=== PATIENT | male | born 1950 | race Caucasian/White ===

== ENCOUNTER → 2017-05-21 | Outpatient (CLI) | payer MEDICARE, OTHER | LOC: US 11:16 | DX: N17.9 Acute kidney failure, unspecified (principal); N28.89 Other specified disorders of kidney and ureter; N26.1 Atrophy of kidney (terminal) ==

== ENCOUNTER 2022-01-30 17:35 | Inpatient (IN) | payer MEDICARE, OTHER ==
[~2022-01-30] VITALS: Ht 190.5 cm; Wt 83.5 kg
[2022-01-30 18:55] LABS: HEMOGLOBIN 14.3 gm/dl (14.0-17.5); RED BLOOD COUNT 4.48 M/UL (4.20-5.50); WHITE BLOOD COUNT 5.9 K/UL (4.5-11.0)
[2022-01-30 19:18] LABS: BUN/CREATININE RATIO 17 (0-10)
[2022-01-30] MEDS ORDERED: AMLODIPINE BESYL5 MG PO (23:27)
[2022-01-30] MEDS ORDERED: CLOPIDOGREL75 MG PO (23:27)
[2022-01-30] MEDS ORDERED: PROTONIX 40 MG40 M1 PO (23:28)
[2022-01-30] MEDS ORDERED: PRAVASTATIN SOD20 MG PO (23:28)
[2022-01-30] MEDS ORDERED: STIOLTO RESPIMAT4 GM INH (23:29)
[2022-01-31 07:02] LABS: HEMOGLOBIN 14.4 gm/dl (14.0-17.5); RED BLOOD COUNT 4.52 M/UL (4.20-5.50); WHITE BLOOD COUNT 5.7 K/UL (4.5-11.0)
[2022-02-01 06:31] LABS: HEMOGLOBIN 13.4 gm/dl (14.0-17.5); RED BLOOD COUNT 4.19 M/UL (4.20-5.50)
[2022-02-01 06:53] LABS: WHITE BLOOD COUNT 11.4 K/UL (4.5-11.0)
[2022-02-02 06:07] LABS: HEMOGLOBIN 13.1 gm/dl (14.0-17.5); RED BLOOD COUNT 4.16 M/UL (4.20-5.50); WHITE BLOOD COUNT 9.4 K/UL (4.5-11.0)
[2022-02-03 05:55] LABS: HEMOGLOBIN 12.6 gm/dl (14.0-17.5); RED BLOOD COUNT 3.94 M/UL (4.20-5.50); WHITE BLOOD COUNT 8.3 K/UL (4.5-11.0)
[2022-02-03 06:20] LABS: BUN/CREATININE RATIO 29 (0-10)
[2022-02-03] MEDS ORDERED: VITAMIN D325 MCG PO (13:56)
[2022-02-03] MEDS ORDERED: ZINC SULFATE50 MG PO (13:56)
[2022-02-03] MEDS ORDERED: PROAIR HFA8.5 GM INH (13:56)
[2022-02-03] MEDS ORDERED: OMNICEF 300 MG300 MG PO (13:56)
[2022-02-03] MEDS ORDERED: ROBITUSSIN DM UD5 ML PO (13:56)
[2022-02-03] MEDS ORDERED: MEDROL TAB 4 MG4 MG PO (13:56)
[2022-02-03] MEDS ORDERED: VITAMIN C 500500 MG PO (13:56)
--- NOTE | 2022-02-03 14:56 | NUR ---
contacted patient family member listed on his contact information and family member stated that he does not know the patient family physician name, he stated he takes the patient to [place] and he does not remember the name. instructed family to make an appt for patient in one week for follow up visit and he verb understanding.
== END 2022-02-03 15:35 | disposition home or self-care (01) | DRG 177 ==
LOC: ER1 17:35 → CDU 20:27 → M/S 20:27
PROVIDERS: Emergency Medicine; Internal Medicine; ADMIT Internal Medicine
PROC: 8E0ZXY6 Isolation (ICD-10-PCS; principal; 2022-01-30)
PROC: 3E03329 Introduction of Other Anti-infective into Peripheral Vein, Percutaneous Approach (ICD-10-PCS; 2022-01-30)
PROC: 3E0333Z Introduction of Anti-inflammatory into Peripheral Vein, Percutaneous Approach (ICD-10-PCS; 2022-01-31)
PROC: XW033E5 Introduction of Remdesivir Anti-infective into Peripheral Vein, Percutaneous Approach, New Technology Group 5 (ICD-10-PCS; 2022-01-31)
DX: U07.1 COVID-19 (principal); J12.82 Pneumonia due to coronavirus disease 2019; J96.01 Acute respiratory failure with hypoxia; J15.9 Unspecified bacterial pneumonia; J44.0 Chronic obstructive pulmonary disease with (acute) lower respiratory infection; N17.9 Acute kidney failure, unspecified; E87.2 Acidosis; E78.5 Hyperlipidemia, unspecified; I12.9 Hypertensive chronic kidney disease with stage 1 through stage 4 chronic kidney disease, or unspecified chronic kidney disease; K21.9 Gastro-esophageal reflux disease without esophagitis; E86.0 Dehydration; I25.10 Atherosclerotic heart disease of native coronary artery without angina pectoris; N18.30 Chronic kidney disease, stage 3 unspecified; Z86.73 Personal history of transient ischemic attack (TIA), and cerebral infarction without residual deficits; Z82.49 Family history of ischemic heart disease and other diseases of the circulatory system; Z83.6 Family history of other diseases of the respiratory system; Z87.891 Personal history of nicotine dependence; Z79.01 Long term (current) use of anticoagulants; Z79.899 Other long term (current) drug therapy
CPT/HCPCS: 0240U; 36415; 36600; 71045; 80053; 82550; 82553; 82803; 83605; 83735; 83880; 84484; 85025; 85027; 85610; 85730; 86140; 87040; 93005; 94640; 94664; 94760; 96374; 99285; J0248; J0456; J0696; J1100; J1644; J2930; J7030

== ENCOUNTER → 2022-07-29 | Outpatient (CLI) | payer MEDICARE, OTHER ==
[~2022-07-29] MED LIST: AMLODIPINE BESYL5 MG PO; CLOPIDOGREL75 MG PO; MEDROL TAB 4 MG4 MG PO; OMNICEF 300 MG300 MG PO; PRAVASTATIN SOD20 MG PO; PROAIR HFA8.5 GM INH; PROTONIX 40 MG40 M1 PO; ROBITUSSIN DM UD5 ML PO; STIOLTO RESPIMAT4 GM INH; VITAMIN C 500500 MG PO; VITAMIN D325 MCG PO; ZINC SULFATE50 MG PO
== END ==
LOC: KOH-I 12:17
DX: J44.9 Chronic obstructive pulmonary disease, unspecified (principal)
CPT/HCPCS: 71046

== ENCOUNTER → 2022-08-28 | Outpatient (CLI) | payer MEDICARE, OTHER | LOC: HEART 5 10:31 | DX: J44.9 Chronic obstructive pulmonary disease, unspecified (principal) | CPT/HCPCS: 94060; 94729 ==